=== PATIENT | female | born 1975 | race Caucasian/White ===

== ENCOUNTER 2017-01-21 14:32 | Outpatient (CLI) | payer OTHER ==
--- NOTE | 2017-01-22 17:05 | Mammography Report ---
DIGITAL SCREENING MAMMOGRAM: 01/21/2017 CLINICAL INDICATION: A 41-year-old for baseline. TECHNIQUE: Routine CC and MLO projections were obtained of the breasts as well as bilateral laterall y exaggerated craniocaudal views. FINDINGS: The breasts demonstrate heterogeneously dense fibroglandular parenchyma bilaterally. No s uspicious masses, clustered microcalcifications, or regions of architectural distortion are identifie d. IMPRESSION: NEGATIVE EXAMINATION. RECOMMENDATION: Routine annual screening unless otherwise clinically indicated. BIRADS CATEGORY 1 - NEGATIVE. STANDARD QUALIFYING STATEMENTS 1. This examination was reviewed with the aid of Computer-Aided Detection (CAD). 2. A negative or benign imaging report should not delay biopsy if clinically suspicious findings are present. Consider surgical consultation if warranted. More than 5% of cancers are not identified by i maging. 3. Dense breasts may obscure an underlying neoplasm. JOB #: [id number] EXT JOB #:[id number]
== END 2017-01-21 14:33 | disposition home or self-care (01) ==
LOC: DI.N 14:32
PROVIDERS: ATTEND Physician Assistant Medical
DX: Z12.31 Encounter for screening mammogram for malignant neoplasm of breast (principal)
CPT/HCPCS: 77067

== ENCOUNTER 2017-11-09 08:14 | Outpatient (CLI) | payer BC ==
--- NOTE | 2017-11-09 15:45 | CT Report ---
CT SINUSES WITHOUT CONTRAST: 11/09/2017 CLINICAL INDICATION: Sinusitis. TECHNIQUE: Axial CT images of the paranasal sinuses were obtained without contrast, following which sagittal and coronal reconstructions were performed. COMPARISON: No previous CT is available for comparison. FINDINGS: There is mild mucosal thickening in the maxillary sinuses. The ethmoid air cells, sphenoid sinus, and frontal sinuses are unremarkable. The ostiomeatal units are patent. The nasal septum is midline. No osseous destruction is seen. The visualized orbital contents are unremarkable. IMPRESSION: MILD CHRONIC MAXILLARY SINUS DISEASE. CT DOSE REDUCTION STATEMENT In accordance with CT protocol optimization, one or more of the following dose reduction techniques were utilized for this exam: automated exposure control, adjustment of mA and/or KV based on patient size, or use of iterative reconstructive technique. TD: 11/09/2017 15:44
== END 2017-11-09 08:15 | disposition home or self-care (01) ==
LOC: DI 08:14
PROVIDERS: ATTEND Physician Assistant Medical
DX: J32.0 Chronic maxillary sinusitis (principal)
CPT/HCPCS: 70486

== ENCOUNTER 2018-01-31 14:40 | Outpatient (CLI) | payer BC | END 2018-01-31 14:41 | disposition home or self-care (01) | LOC: LAB.R 14:40 | PROVIDERS: ATTEND Obstetrics & Gynecology | DX: Z11.3 Encounter for screening for infections with a predominantly sexual mode of transmission (principal) | CPT/HCPCS: 87491; 87591 ==

== ENCOUNTER 2018-01-31 15:06 | Outpatient (CLI) | payer BC ==
[2018-01-31 15:33] LABS: BILIRUBIN,URINE NEGATIVE (NEGATIVE); GLUCOSE, URINE (UA) NEGATIVE (NEGATIVE); KETONES,URINE (UA) NEGATIVE (NEGATIVE); LEUKOCYTE ESTERASE, URINE NEGATIVE (NEGATIVE); NITRITE,URINE NEGATIVE (NEGATIVE); OCCULT BLOOD,URINE NEGATIVE (NEGATIVE); PH,URINE 6.5 PH (5.0-7.5); PROTEIN,URINE NEGATIVE (NEGATIVE); UROBILINOGEN,URINE 0.2 (NORMAL) E.U./dL (NORMAL)
[2018-01-31 15:34] LABS: BASOPHILS % (AUTO) 0.4 %; EOSINOPHILS # (AUTO) 0.1 10^3/uL (0.0-0.7); EOSINOPHILS % (AUTO) 0.7 %; HGB - HEMOGLOBIN 11.1 g/dL (12.0-16.0); LYMPHOCYTES # (AUTO) 1.9 10^3/uL (1.5-3.5); LYMPHOCYTES % (AUTO) 22.6 %; MEAN CORPUSCULAR HEMOGLOBIN 30.4 pg (27.0-31.0); MEAN CORPUSCULAR HGB CONC 33.9 g/dL (32.0-36.0); MEAN CORPUSCULAR VOLUME 89.6 fL (81.0-99.0); MEAN PLATELET VOLUME 8.4 fL (7.9-10.8); MONOCYTES # (AUTO) 0.6 10^3/uL (0.0-1.0); NEUTROPHILS # (AUTO) 5.7 10^3/uL (1.5-6.6); NEUTROPHILS % (AUTO) 69.3 %; PLT - PLATELET COUNT 266 10^3/uL (130-450); RED BLOOD COUNT 3.67 10^6/uL (4.20-5.40); RED CELL DISTRIBUTION WIDTH 12.1 % (12.0-15.0); WHITE BLOOD COUNT 8.2 x10^3/uL (4.8-10.8)
[2018-01-31 15:35] LABS: CLARITY,URINE CLEAR (CLEAR)
[2018-01-31 15:38] LABS: BACTERIA,URINE Rare /HPF (None Seen); RBC,URINE None Seen /HPF (0-5); SQUAMOUS EPITHELIAL CELL,UR FEW Squamous (<= Few)
[2018-02-01 17:26] LABS: HIV AG/AB 4TH GEN NON-REACTIVE (NON-REACTIVE)
[2018-02-02 19:10] LABS: HEPATITIS B SURFACE ANTIGEN NON-REACTIVE (NON-REACTIVE); HEPATITIS C ANTIBODY NON-REACTIVE (NON-REACTIVE)
== END 2018-01-31 15:07 | disposition home or self-care (01) ==
LOC: LAB 15:06
PROVIDERS: ATTEND Obstetrics & Gynecology
DX: Z36.9 Encounter for antenatal screening, unspecified (principal); Z11.3 Encounter for screening for infections with a predominantly sexual mode of transmission
CPT/HCPCS: 36415; 81001; 81599; 85025; 86592; 86762; 86803; 86850; 86900; 86901; 87340; 87389; 87491; 87591

== ENCOUNTER 2018-01-31 15:10 | Outpatient (CLI) | payer BC ==
[2018-02-01 16:17] LABS: MUDS CUTOFF CONCENTRATIONS CUTOFF CONC BELOW:
[2018-02-01 16:39] LABS: AMPHETAMINE SCREEN,URINE NEGATIVE (NEGATIVE); BENZODIAZEPINES SCREEN, URINE NEGATIVE (NEGATIVE); COCAINE SCREEN URINE NEGATIVE (NEGATIVE); METHADONE SCREEN, URINE NEGATIVE (NEGATIVE); METHAMPHETAMINES SCREEN, URINE NEGATIVE (NEGATIVE); OPIATE SCREEN, URINE NEGATIVE (NEGATIVE); OXYCODONE SCREEN, URINE NEGATIVE (NEGATIVE); PROPOXYPHENE SCREEN, URINE NEGATIVE (NEGATIVE); TRICYCLIC ANTIDEPRESSANT,URINE NEGATIVE (NEGATIVE)
== END 2018-01-31 23:59 ==
LOC: LAB.R 15:10
PROVIDERS: ATTEND Obstetrics & Gynecology
DX: Z36.9 Encounter for antenatal screening, unspecified (principal)
CPT/HCPCS: 80306

== ENCOUNTER 2018-04-22 07:31 | Outpatient (CLI) | payer BC ==
--- NOTE | 2018-04-22 10:04 | Ultrasound Report ---
Procedure Date: 04/22/2018 Accession Number: [id number] / [id number] Procedure: US - OB Detailed Eval CPT Code: FULL RESULT: EXAM: OB Detailed Eval DATE: 04/22/2018 8:51 AM CLINICAL HISTORY: ENCTR FOR SCREENING TECHNIQUE: Real-time scanning was performed with fuels sales representative static images obtained. COMPARISON: None LAST MENSTRUAL PERIOD: 11/23/2017 Clinical Age: 21 weeks 3 days US Age: 22 weeks 1 days EFW Hadlock: 491 grams EFW % Hadlock: 85% Heart Rate: 132 bpm EDC: 08/30/2018 US EDC: 08/25/2018 BPD Hadlock: 22 weeks 1 days; Mean mm 53 HC Hadlock: 22 weeks 4 days; Mean mm 177 AC Hadlock: 22 weeks 4 days; Mean mm 177 FL Hadlock: 22 weeks 1 days; Mean mm 38 Presentation: Tranverse Placental Location: Posterior Cervical Length: 4.4 cm Amniotic Fluid: CECILIA Subjectively normal cm FINDINGS: There is a single live intrauterine gestation in transverse presentation with a heart rate of 132 bpm with a posterior placenta without evidence of previa supplied by essentially originating three-vessel cord. Due to motion views of the right and left ventricular outflow tracts were somewhat limited. The following anatomic structures were visualized and appear normal: The intracranial contents, including the ventricles and posterior fossa; the lips and orbits; the spine; the heart, including 4 chamber view (note limited visualization of both outflow tracts) and diaphragm; the abdominal contents, including the stomach, the bilateral kidneys, and urinary bladder, as well as a normal 3-vessel cord insertion; 4 limbs. IMPRESSION: Single live intrauterine gestation with a sonographic age of 22 weeks and 1 day. Somewhat limited visualization of the right and left ventricular outflow tracts with no abnormality detected.
== END 2018-04-22 07:32 | disposition home or self-care (01) ==
LOC: DI 07:31
PROVIDERS: ATTEND Obstetrics & Gynecology
DX: Z36.9 Encounter for antenatal screening, unspecified (principal)
CPT/HCPCS: 76811

== ENCOUNTER 2018-05-13 12:11 | Outpatient (CLI) | payer BC ==
[2018-05-13 13:26] LABS: MEAN CORPUSCULAR HEMOGLOBIN 30.3 pg (27.0-31.0); MEAN CORPUSCULAR HGB CONC 33.7 g/dL (32.0-36.0); MEAN PLATELET VOLUME 8.6 fL (7.9-10.8); RED BLOOD COUNT 3.63 10^6/uL (4.20-5.40); RED CELL DISTRIBUTION WIDTH 13.2 % (12.0-15.0); WHITE BLOOD COUNT 11.2 x10^3/uL (4.8-10.8)
== END 2018-05-13 12:12 | disposition home or self-care (01) ==
LOC: LAB 12:11
PROVIDERS: ATTEND Obstetrics & Gynecology
DX: Z34.90 Encounter for supervision of normal pregnancy, unspecified, unspecified trimester (principal)
CPT/HCPCS: 36415; 82950; 85027; 86850

== ENCOUNTER 2018-05-17 09:38 | Outpatient (CLI) | payer BC ==
--- NOTE | 2018-05-17 12:17 | Ultrasound Report ---
Reason: ENCOUNTER FOR OTHER SCREENING FOLLOW UP Procedure Date: 05/17/2018 Accession Number: [id number] / [id number] Procedure: US - OB F/U or Repeat CPT Code: FULL RESULT: EXAM: LIMITED OBSTETRICAL ULTRASOUND EXAM DATE: 05/17/2018 10:35 AM. CLINICAL HISTORY: ENCOUNTER FOR OTHER SCREENING FOLLOW UP for evaluation of cardiac outflow tracts. COMPARISON: 04/22/2018. TECHNIQUE: Real-time sonographic evaluation of the fetus performed by the fire alarm mechanic. Multiple personal financial representative static images were saved for review. DATING: Established EGA 25 weeks 0 days with ETHAN 08/30/2018. GENERAL EVALUATION Mock . Cardiac activity: 122 bpm. movement: Present. Presentation: Breech. Placenta: Posterior position. Amniotic fluid: Normal. CECILIA 21.3 cm. MVP 6.1 cm. ANATOMY cardiac outflow tracts well seen today and no abnormality is identified. MATERNAL STRUCTURES Cervix long and closed 5.2 cm. IMPRESSION: 1. Mock intrauterine with gestational age 25 weeks 0 days based on established ETHAN. 2. outflow tracts are well seen and no abnormality is identified. RADIA
== END 2018-05-17 09:39 | disposition home or self-care (01) ==
LOC: DI 09:38
PROVIDERS: ATTEND Obstetrics & Gynecology
DX: Z36.2 Encounter for other antenatal screening follow-up (principal)
CPT/HCPCS: 76816

== ENCOUNTER 2018-07-18 08:34 | Outpatient (CLI) | payer BC ==
--- NOTE | 2018-07-18 12:26 | Ultrasound Report ---
Reason: ENCTR FOR SCREENING FOR MACROSOMIA Procedure Date: 07/18/2018 Accession Number: [id number] / [id number] Procedure: US - OB F/U or Repeat CPT Code: FULL RESULT: EXAM: COMPLETE OBSTETRICAL ULTRASOUND EXAM DATE: 07/18/2018 10:00 AM. CLINICAL HISTORY: Macrosomia. COMPARISON: OB FOLLOWUP OR REPEAT 05/17/2018 9:57 AM. TECHNIQUE: Real-time sonographic evaluation of the fetus performed by the geographic information systems director. Multiple car sales representative static images were saved for review. DATING: Established EGA 33 weeks 6 days with ETHAN 08/30/2018 based on physician provided established due date. EGA 36 weeks 1 day with ETHAN 08/14/2018 based on the current ultrasound. GENERAL EVALUATION Mock . Cardiac activity: 138 bpm. movement: Visualized. Presentation: Breech. Placenta: Fundal position. No evidence for previa. Amniotic fluid: 19.8 MVP 6.7 cm. BIOMETRY Bi-Parietal Diameter (BPD): 9.0 cm, 36 weeks 3 days Head Circumference (HC): 32.5 cm, 36 weeks 6 days Abdominal Circumference (AC): 33.3 cm, 37 weeks 1 day Femur Length (FL): 6.7 cm, 34 weeks 3 days Estimated Weight: 2940 g, 84th percentile for 33 weeks 6 days. MATERNAL STRUCTURES Uterus: Unremarkable. Cervix: Long and closed. Transabdominal length 5.3 cm. Right ovary/adnexa: Unremarkable. Left ovary/adnexa: Unremarkable. Free fluid: None. IMPRESSION: 1. Mock live intrauterine with gestational age 33 weeks 6 days based on physician provided established due date. 2. Estimated weight is at the upper limits of normal. 3. Breech presentation. RADIA
== END 2018-07-18 08:35 | disposition home or self-care (01) ==
LOC: DI 08:34
PROVIDERS: ATTEND Obstetrics & Gynecology
DX: Z36.88 Encounter for antenatal screening for fetal macrosomia (principal)
CPT/HCPCS: 76816

== ENCOUNTER 2018-08-02 08:00 | Outpatient (CLI) | payer BC | END 2018-08-02 08:01 | disposition home or self-care (01) | LOC: LAB.R 08:00 | PROVIDERS: ATTEND Obstetrics & Gynecology | DX: Z33.1 Pregnant state, incidental (principal) | CPT/HCPCS: 87081 ==

== ENCOUNTER 2018-08-29 15:47 | Inpatient (IN) | payer BC ==
[2018-08-29] MEDS ORDERED: OXYTOCIN/SODIUM CHLORIDE 500 ML IV SCH (16:00)
[2018-08-29] MEDS ORDERED: METHYLERGONOVINE 0.2 MG/ML AMP IM PRN (16:00)
[2018-08-29] MEDS ORDERED: miSOPROStol 200 MCG TABLET PR ONE (16:00)
[2018-08-29] MEDS ORDERED: fentaNYL 100 MCG/2 ML VIAL IVP PRN (16:00)
[2018-08-29] MEDS ORDERED: CARBOPROST TROMETHAMINE 250 MCG/ML AMP IM PRN (16:00)
[2018-08-29] MEDS ORDERED: SODIUM CHLORIDE FLUSH 0.9% 10 ML SYRINGE IVP PRN (16:00)
[2018-08-29] MEDS ORDERED: miSOPROStol 200 MCG TABLET PR PRN (16:00)
[2018-08-29] MEDS ORDERED: ONDANSETRON ODT 4 MG TABLET TL PRN (16:00)
--- NOTE | 2018-08-29 16:12 | HISTORY & PHYSICAL EXAMINATION ---
DATE OF SERVICE: 08/29/2018 Physician: Nitin Brock MD DIAGNOSES 1. A 39-week, 6-day gestation. 2. LGA , 84th percentile. 3. History of prior macrosomic . 4. Advanced maternal age. HISTORY OF PRESENT ILLNESS: Patient is a 43-year-old 3, para 2-0-0-2, woman at 39 weeks and 6 days gestation confirmed by early ultrasound. (LMP 11/23/2017, ETHAN by dates 08/30/2018; ETHAN by 10-week ultrasound 08/27/2018; ETHAN set at 08/30) She notes occasional uterine contractions but does not suspect leakage of fluid. There are no signs or symptoms of preeclampsia. Her last delivery was post-dates induction at 42 weeks that ended up as a 9 pound, 8 ounce fetus with lacerations. She has been closely tracked on this , and last ultrasound documented an LGA fetus at 33 weeks, 6 days, consistent with the 84th percentile. At that time, the cervix was long and full. 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 Her Glucola challenge test is normal at 108. Basic labs: Blood type O+, antibody screen negative; RPR negative; urinalysis negative; rubella immune; hepatitis B surface antigen negative; toxicology screen negative; 20-week ultrasound normal anatomy except ventricular outflow tract not well seen, repeat ultrasound normal cardiac anatomy; 1 hour glucose challenge test 108 normal; HIV negative; GBS negative Strep C found on culture PAST MEDICAL HISTORY: Patient has no major medical concerns. She has no history of chronic diseases such as diabetes or hypertension. PAST SURGICAL HISTORY 1. Umbilical and inguinal hernia repair, 2009. 2. D & C. FAMILY HISTORY: No immediate family members with NC or stroke or DVT. No gynecologic malignancy history. No congenital anomalies or defects. ALLERGIES 1. ERYTHROMYCIN. 2. SULFA. 3. AUGMENTIN. 4. OMNICEF. 5. AMOXICILLIN. 6. TORADOL. MEDICATIONS: Acyclovir 400 mg b.i.d.; vitamins with iron SOCIAL HISTORY: Former smoker, but now abstinent. Drinks 2 cups of coffee a day. Exercises 3 times a week. No alcohol use in . No drug use in . REVIEW OF SYSTEMS CONSTITUTIONAL: Negative. HEENT: Negative. CARDIAC: Negative. LUNGS: Negative. GASTROINTESTINAL: Negative. GENITOURINARY: Reference HPI. MUSCULOSKELETAL: Negative. NEUROLOGIC: Negative. PSYCHIATRIC: Negative. PHYSICAL EXAMINATION GENERAL: Well groomed, pleasant, alert. VITAL SIGNS: BMI 30.32, blood pressure 130/75. HEENT: Supple neck. No thyromegaly. Dentition in good repair. BREASTS: Deferred. LUNGS: Clear to auscultation. CARDIAC: Regular. No murmur. No gallop. ABDOMEN: Nondistended. No organomegaly. No significant tenderness. UTERUS: Normal resting tone, nontender, no contractions; large fetus estimate 9 pounds plus, in a head down oblique (confirmed by ultrasound). EXTERNAL GENITALIA: No apparent lesions. Vagina: No blood or discharge. Cervix: 1 cm, 30% effaced, soft, -3 station. Electronic heart tracing pending. EXTREMITIES: Nonedematous. No notable lesions. Normal range of motion. NEUROLOGIC: Grossly intact. Patellar reflexes 2+ and equal. No clonus. SKIN: No lesions noted. ADMIT LABS: Pending. ASSESSMENT: Induction This is a 40-week gestation that previous pregnancies have been complicated by macrosomia and traumatic delivery. Patient has a LGA fetus in a head down oblique position. The head has entered the pelvis and the bony pelvis Has proven adequate for 9 pound plus fetus. Currently the upward trend of growth may exceed maternal capacity to deliver. I intend to induce labor beginning with cervical ripening and nuchal misoprostol. We discussed the risks and benefits of induction. Standardized induction consent form was signed. Group C Streptococcus 2.9% of women are colonized by Streptococcus G or C. Vaginal colonization is associated with increased risk of endometritis. More research is needed to clarify if antibiotic prophylaxis is reasonable for this group, but antibiotic treatment should start without delay for these women if signs of infection appear during labor or in the period. Currently prophylactic antibiotics are not required. PLAN: Cytotec induction. TD: 08/29/2018 15:15 [email or web address]
[2018-08-29 16:33] LABS: BASOPHILS # (AUTO) 0.1 10^3/uL (0.0-0.1); BASOPHILS % (AUTO) 0.5 %; EOSINOPHILS # (AUTO) 0.1 10^3/uL (0.0-0.7); HGB - HEMOGLOBIN 10.9 g/dL (12.0-16.0); LYMPHOCYTES # (AUTO) 1.7 10^3/uL (1.5-3.5); LYMPHOCYTES % (AUTO) 16.1 %; MEAN CORPUSCULAR HEMOGLOBIN 29.1 pg (27.0-31.0); MEAN CORPUSCULAR HGB CONC 33.2 g/dL (32.0-36.0); MEAN CORPUSCULAR VOLUME 87.6 fL (81.0-99.0); MONOCYTES # (AUTO) 0.8 10^3/uL (0.0-1.0); MONOCYTES % (AUTO) 7.5 %; NEUTROPHILS # (AUTO) 8.1 10^3/uL (1.5-6.6); NEUTROPHILS % (AUTO) 74.9 %; PLT - PLATELET COUNT 260 10^3/uL (130-450); RED BLOOD COUNT 3.74 10^6/uL (4.20-5.40); RED CELL DISTRIBUTION WIDTH 14.5 % (12.0-15.0); WHITE BLOOD COUNT 10.9 x10^3/uL (4.8-10.8)
[2018-08-29] MEDS: miSOPROStol 100 MCG TABLET BC SCH ×2 (16:46→21:30)
[2018-08-29] MEDS ORDERED: SODIUM CHLORIDE FLUSH 0.9% 10 ML SYRINGE IVP SCH (17:00)
[2018-08-29] MEDS ORDERED: miSOPROStol 200 MCG TABLET ONE (17:15)
[2018-08-29] MEDS ORDERED: OXYTOCIN/SODIUM CHLORIDE 0 ML IV ONE (17:16)
--- NOTE | 2018-08-29 19:31 | PROVIDER PROGRESS NOTE ---
Labor Progress Note - Uterine Monitoring Uterine Monitoring Mode: positive: External toco Contraction Frequency (min/apart): irreg Contraction Intensity: positive: Mild Uterine Resting Tone: positive: Soft - Monitoring Monitor Mode: positive: External ultrasound Heart Rate Baseline: 135 Heart Rate Variability: positive: Moderate (6-25 bmp) Accelerations: positive: Present, 15x15 Decelerations: positive: None Strip Review: positive: Category I - Labor Progress Note Labor Progress Note/Additional Text: Patient has received her first dose of Cytotec but is yet to start regular contractions. Second dose will be around 2044. We will continue dosing throughout the night unless patient requests rest time. If she desires to sleep overnight we will give Ambien 10 mg and hold Cytotec dosing until 6 AM.
[2018-08-29] MEDS ORDERED: TERBUTALINE 1 MG/ML VIAL SUBQ ONE ×2 (22:43→23:07)
[2018-08-29] MEDS: LACTATED RINGERS 1,000 ML IV SCH (23:00)
--- NOTE | 2018-08-29 23:28 | PROVIDER PROGRESS NOTE ---
Labor Progress Note - Uterine Monitoring Uterine Monitoring Mode: positive: External toco Contraction Frequency (min/apart): Every 4.5-2 minutes; Sustained contraction for 6 minutes at 2230 Contraction Intensity: positive: Mild to moderate (Some of the contractions are beyond moderate and range up to strong.) Uterine Resting Tone: positive: Soft (Currently the resting tone is soft but increased compared to baseline; immediately after the 20-30 contraction nursing reports increased resting tone) - Monitoring Monitor Mode: positive: External ultrasound Heart Rate Baseline: 145 bpm Heart Rate Variability: positive: Moderate (6-25 bmp) (Currently moderate but previously minimal) Accelerations: positive: Present, 15x15 Decelerations: positive: Variable (Variable decelerations with major of 120; Some as low as 90 but with prompt recovery; at 2303 D cell to 90 lasting 90 seconds; single dose terbutaline 0.25 mg subcu given shortly thereafter) Strip Review: positive: Category II - Vaginal Exam Dilation (in cm): 2 (Based on baseline exam, could not palpate cervical os currently) Effacement (%): 30% (Based on baseline exam, could not palpate cervical os currently) Station: Ballotable (-4 station) Cervical Position: Midposition - Labor Progress Note Labor Progress Note/Additional Text: After second dose of Cervidil patient's tempo and intensity of contractions increased; however, so did decelerations and resting tone. Patient is in a oblique head down position and given time and contractions the line should convert to vertex again. Position change probably dislodged head. In utero resuscitation was done with oxygen fluid bolus and single dose terbutaline 0.25 mg subcu. Tone and contraction frequency has decreased and EFM tracing returning to category 1. Will hold midnight dose of Cervidil.
[2018-08-29] MEDS ORDERED: ZOLPIDEM 5 MG TABLET PO ONE (23:59)
[2018-08-30] MEDS ORDERED: TERBUTALINE 1 MG/ML VIAL SUBQ ONE (01:01)
[2018-08-30] MEDS: LACTATED RINGERS 1,000 ML IV SCH ×4 (01:26→20:05)
--- NOTE | 2018-08-30 07:27 | PROVIDER PROGRESS NOTE ---
Labor Progress Note - Uterine Monitoring Uterine Monitoring Mode: positive: External toco Contraction Frequency (min/apart): Every 3-6 minutes Contraction Intensity: positive: Mild Uterine Resting Tone: positive: Soft - Monitoring Monitor Mode: positive: External ultrasound Heart Rate Baseline: 140 Heart Rate Variability: positive: Moderate (6-25 bmp) Accelerations: positive: Present, 15x15 Decelerations: positive: None Strip Review: positive: Category I - Vaginal Exam Dilation (in cm): Cannot clearly field to the high station Effacement (%): Cannot clearly feel to the high station Station: Ballotable - Labor Progress Note Labor Progress Note/Additional Text: Patient rested overnight with the aid of Ambien. Contractions have diminished in frequency and intensity. Prior concerning's variable decelerations have ceased. Head was dislodged out of the pelvis with repositioning last night during resuscitation. It is not returned and ultrasound ordered to investigate EFW. Possibly the lie is shifted back to a transverse.
[2018-08-30] MEDS ORDERED: CITRIC ACID/SODIUM CITRATE 15 ML UDC PO ONE (08:23)
--- NOTE | 2018-08-30 08:36 | ANESTHESIA ---
Pre-Anesthesia VS, & Labs - Diagnosis distress - Procedure Emergency C section Vital Signs: Temp Pulse Resp BP Pulse Ox 36.9 C 76 18 113/68 99 08/29/18 18:00 08/29/18 18:00 08/29/18 18:00 08/29/18 18:00 08/29/18 18:00 Height 5 ft 7 in Weight (kg) 91.172 kg - NPO >8 hours - Is Patient ?: Yes - Lab Results Current Lab Results: Laboratory Tests 08/29/18 14:24: WBC 10.9 H, RBC 3.74 L, Hgb 10.9 L, Hct 32.8 L, MCV 87.6, MCH 29.1, MCHC 33.2, RDW 14.5, Plt Count 260, MPV 10.0, Neut # (Auto) 8.1 H, Lymph # (Auto) 1.7, Powell # (Auto) 0.8, Eos # (Auto) 0.1, Baso # (Auto) 0.1, Absolute Nucleated RBC 0.00, Nucleated RBC % 0.0 Fish Bones: 08/29/18 14:24 Home Medications and Allergies Home Medications: Ambulatory Orders Acyclovir [Zovirax] 400 mg PO BID 08/29/18 Active Medications Fentanyl (Fentanyl) 50 mcg IVP Q1H PRN PRN Reason: PAIN Lactated Ringer's (Lr) 1,000 mls @ 100 mls/hr IV .Q10H [facility] Last Admin: 08/30/18 08:08 Dose: 100 mls/hr Oxytocin/Sodium Chloride (Pitocin/Sodium Chloride) 500 mls @ 1 mls/hr IV TITR ZOILA; Protocol Misoprostol (Cytotec) 50 mcg BC Q4HR [facility] Last Admin: 08/29/18 21:30 Dose: 50 mcg Ondansetron HCl (Zofran Inj) 4 mg IVP Q4HR PRN PRN Reason: Nausea / Vomiting Ondansetron HCl (Zofran Odt) 4 mg TL Q4HR PRN PRN Reason: Nausea / Vomiting Sodium Chloride (Normal Saline Flush 0.9%) 10 ml IVP 0100,0900,1700 ZOILA Sodium Chloride (Normal Saline Flush 0.9%) 10 ml IVP PRN PRN PRN Reason: NEEDED PER PROVIDER ORDERS Last Admin: 08/29/18 16:46 Dose: 10 ml Fluticasone [Flonase] 2 sprays DEXTER DAILY 07/13/13 Acyclovir [Zovirax] 400 mg PO BID 08/29/18 Allergies/Adverse Reactions: Allergies Allergy/AdvReac Type Severity Reaction Status Date / Time amoxicillin trihydrate * Allergy Intermediate Rash Verified 07/14/13 06:47 [From Augmentin] Cephalosporins Allergy Intermediate Rash Verified 07/14/13 06:47 erythromycin base Allergy Intermediate Rash Verified 07/14/13 06:47 [Erythromycin Base] potassium clavulanate * Allergy Intermediate Rash Verified 07/14/13 06:47 [From Augmentin] Sulfa (Sulfonamide Allergy Intermediate Rash Verified 07/14/13 06:47 Antibiotics) Anes History & Medical History - Anesthetic History Anesthesia Complications: reports: No previous complications Family history of Anesthesia Complications: Denies Family history of Malignant Hyperthermia: Denies - Medical History Cardiovascular: reports: None Pulmonary: reports: None Gastrointestinal: reports: None Urinary: reports: None Neuro: reports: None Musculoskeletal: reports: None Endocrine/Autoimmune: reports: None Blood Disorders: reports: None Skin: reports: None Smoking Status: Former smoker Psychosocial: reports: No issues indicated Exam General: Alert, Oriented x3 Dental: WNL Mouth Opening: Greater than 4 Fingerbreadths Neck Mobility: Normal Mallampati classification: II Thyromental Distance: greater than 6 cm Respiratory: Lungs clear Cardiovascular: Regular rate Mental/Cognitive Status: Alert/Oriented X3, Normal for patient Cognitive Status: Within normal limits Plan Anesthesia Type: Spinal Consent for Procedure(s) Verified and Reviewed: Yes Code Status: Attempt Resuscitation ASA classification: 2-Mild systemic disease Is this case an emergency?: Yes
[2018-08-30] MEDS ORDERED: LACTATED RINGERS 1,000 ML IV ONE (08:46)
[2018-08-30] MEDS ORDERED: VANCOMYCIN INJ 2 GM in SODIUM CHLORIDE 0.9% 500 ML IV SCH (09:00)
[2018-08-30] MEDS ORDERED: VANCOMYCIN 1 GM VIAL ONE (09:11)
[2018-08-30] MEDS ORDERED: MORPHINE PF 5 MG/10 ML AMP EP ONE (09:25)
[2018-08-30] MEDS ORDERED: VANCOMYCIN 1 GM VIAL IV ONE (09:25)
[2018-08-30] MEDS ORDERED: ePHEDrine 50 MG/ML VIAL IVP ONE (09:25)
[2018-08-30] MEDS ORDERED: ONDANSETRON 4 MG/2 ML VIAL IVP ONE ×2 (09:25→13:00)
[2018-08-30] MEDS ORDERED: ACETAMINOPHEN 1,000 MG/100 ML 100 ML IV ONE (09:25)
--- NOTE | 2018-08-30 09:33 | Ultrasound Report ---
Reason: malpresentation and Macrosomic Procedure Date: 08/30/2018 Accession Number: [id number] / [id number] Procedure: US - OB F/U or Repeat CPT Code: FULL RESULT: EXAM: FOLLOW-UP OBSTETRICAL ULTRASOUND EXAM DATE: 08/30/2018 08:33 AM. CLINICAL HISTORY: Malpresentation and Macrosomic. Cervical length. COMPARISON: 07/18/2018. TECHNIQUE: Real-time transabdominal scanning, with image documentation. Transvaginal scan performed to better assess the cervix per request. DATING: Established EGA 40-0/7 weeks with ETHAN 08/30/2018. EGA 41-3/7 weeks with ETHAN 08/20/2018 based on the current ultrasound. GENERAL EVALUATION Mock . Cardiac activity: 133 bpm. movement: Visualized. Presentation: Oblique transverse breech, spine up, head to maternal left. Placenta: Anterior position. Amniotic fluid: Normal. CECILIA 13.8 cm. MVP 4.4 cm. BIOMETRY Bi-Parietal Diameter (BPD): 10.2 cm, 41-6/7 weeks. Head Circumference (HC): 33.3 cm, out of range. Abdominal Circumference (AC): 41 cm, out of range. Femur Length (FL): 8 cm, 41-1/7 weeks. Estimated Weight: 5162 gm, 99th percentile for 40-0/7 weeks. ANATOMY Not specifically evaluated. MATERNAL STRUCTURES Cervix: Closed cervical length 1.9 cm TV. IMPRESSION: 1. Live mock in oblique transverse breech presentation (spine up, head to maternal left) with current composite sonographic age of 41-3/7 weeks, compared to expected gestational age of 40-0/7 weeks based on the stated ETHAN.. 2. Macrosomia, EFW 99th percentile. 3. Normal fluid, CECILIA 13.8. 4. Anterior placenta. 5. Shortened closed cervical length 1.9 cm. RADIA
[2018-08-30] MEDS ORDERED: SODIUM CHLORIDE FLUSH 0.9% 10 ML SYRINGE IVP PRN (10:07)
[2018-08-30] MEDS ORDERED: diphenhydrAMINE 25 MG CAPSULE PO PRN (10:07)
[2018-08-30] MEDS ORDERED: WITCH HAZEL/GLYCERIN 1 EACH MED..PAD TOP PRN (10:07)
[2018-08-30] MEDS ORDERED: HYDROmorphone 2 MG/ML VIAL IVP PRN (10:14)
--- NOTE | 2018-08-30 10:17 | OPERATIVE REPORT ---
Operative Report - General Admit Date: 08/30/18 Planned Procedure: Primary section Pre-Op Diagnosis: Transverse Lie, backup; macrosomia, 5140 g on ultrasound; AMA Procedure Performed: Primary lower segment transverse section, living macrosomic female infant Post Op Diagnosis: Same as above, Tight nuchal cord - Procedure Note Primary Surgeon: Nitin Brock MD, FACOG, FICS Secondary Surgeon: Nitin Olguin MD, FACOG Pediatrics: Dr. Magdy Pierre MD Anesthesia Provider: Noe Bueno, certified nurse senior erp consultant Anesthesia Technique: Spinal Pathology: Cord gases and cord blood sent IV Fluids (mL): 900 Estimated Blood Loss (mL): 400 Urine Output (mL): 120 (Clear ) Drain/Tube Type: Other (Duncan catheter to gravity) Complications: None - Other Other Information/Narrative: Immediately prior to surgery ultrasound confirmed a back up with head left transverse lie. Segments of cord were visualized in the pelvis around the small parts and neck and possibly bandolier over the back. Physical exam confirmed the head was out of the the pelvis. Ultrasound estimated weight was 5140 g. External monitor strip was stable with baseline in the 140s, moderate variability and no worrisome decelerations. Given the situation, expectant management was unexceptable because of the pooling of cord, macrosomia & the back up presentation; therefore, C Section was recommended. We discussed section, outlining the mechanics, risks,and benefits. After detailed discussion patient and her partner decided to opt for section at this time. She has multiple antibiotic allergies that result in rash and respiratory distress; therefore, vancomycin was chosen. Patient was given Bicitra, placed n.p.o., and 2 units of packed red blood cells were placed on hold. I reviewed her situation with anesthesia and a spinal anesthetic was chosen. Patient was brought to the operating room and placed on the table in the sitting position. Spinal anesthetic was uneventfully installed and patient was moved to the supine. She was prepped and draped in the customary sterile fashion. The heart tones were confirmed stable at roughly 150. The abdomen was palpated and transverse was confirmed again. Additionally there was bilateral inguinal mesh hernia repairs and a sub-umbilical mesh repair repair were identified as well. A midline incision was chosen to avoid this mesh. Timeout briefing was done per protocol. Patient was receiving a loading dose of vancomycin 2 g. Incision was begun at 0916 hours. Midline incision was executed approximately 2 cm above the symphysis and 3 cm below the umbilicus to prevent mesh incursion. The abdominal wall was une ventfully opened in layers. Bladder blade was inserted. Anatomic landmarks were established. Adjunct Nursing Faculty palpated the back and found it to be still back up transverse. The lie was mobile and with pressure on the head and back converted to more of a vertex/oblique. With the head down a curvilinear hysterotomy was executed with scalpel. Upon amniotic cavity entry there was clear fluid. As expected there was cord in the lower segment and in particular a tight nuchal cord. Adjunct Nursing Faculty secured the head with his left hand and moved it into the hysterotomy wound. The cord was then reduced. A Kiwi vacuum extractor was placed on the flexion point and pumped to the green zone. With gentle traction and pressure from the assistant kitchen manager at the fundus, the head was atraumatically delivered. Shoulders were delivered in a tight fit as was the rest of the body. Cord was doubly clamped and transected. Cord blood and cord gas sample sent. was handed to Dr. Beatty who was in attendance. Uterus was exteriorized and examined. No myometrial masses, malformations or septa were found. Uterus was closed in 2 layers with a running stitch of 0 Vicryl, first interlocked and second imbricating in a cardinal fashion. Closure was hemostatically secure. Bladder flap peritoneum was then closed with 3-0 Vicryl. The abdominal cavity was doubly lavaged with warm normal saline. All operative sites were inspected and found to be secure. Uterus responded well to Pitocin and was firm. Uterus was placed back into the abdominal cavity and closure was commenced. The abdominal peritoneum was closed with a running stitch of 2-0 Vicryl. Fascia was closed with a running stitch of 0 Vicryl. Subcutaneous tissue was closed with multiple interrupted stitches of 2-0 Vicryl. Skin was closed with subcuticular stitch of 4-0 Monocryl and a Wound VAC was placed. All sponge needle and instrument counts were confirmed as correct. Patient was already alert and happily received infant "Rodriguez." She and went to the recovery room in stable condition. FINDINGS 1. At 0918 hours a living female was born weighing 4216 grams (9 pounds 5 ounces). Delivery was from a transverse backup position converted to vertex by internal version. Delivery of the head was facilitated with Kiwi vacuum. Apgars were 6/8. Arterial blood gases: Ph= 7.192, BE= -4.3 venous blood glasses: PH = 7.312, BE = -0.8. The delivery was atraumatic. There were no obvious congenital anomalies. Reference Dr. Fernando's notes 2. Placenta was delivered intact with three-vessel cord. There was cord entanglement with a tight nuchal cord which was reduced. Placenta grade 3 3. Uterus is inspected and there were no malformations septa or fibroids to explain persistent transverse. Tubes appeared to be open and fluffy on both sides. Ovaries had cystic activity and decidual change without any suspicious gross findings.
[2018-08-30] MEDS: ONDANSETRON 4 MG/2 ML VIAL IVP PRN ×2 (11:29→15:53)
[2018-08-30] MEDS ORDERED: PROMETHAZINE 25 MG SUPP PR ONE (12:45)
[2018-08-30] MEDS: ACETAMINOPHEN 500 MG TABLET PO SCH ×2 (13:51→18:03)
[2018-08-30] MEDS: DOCUSATE SODIUM 100 MG CAPSULE PO SCH (13:51)
[2018-08-30] MEDS: OXYTOCIN/SODIUM CHLORIDE 500 ML IV SCH (13:51)
[2018-08-30] MEDS: SIMETHICONE CHEW 80 MG TABLET PO SCH (13:52)
[2018-08-30 15:50] LABS: BASOPHILS # (AUTO) 0.1 10^3/uL (0.0-0.1); BASOPHILS % (AUTO) 0.3 %; EOSINOPHILS # (AUTO) 0.1 10^3/uL (0.0-0.7); EOSINOPHILS % (AUTO) 0.4 %; HGB - HEMOGLOBIN 9.9 g/dL (12.0-16.0); LYMPHOCYTES % (AUTO) 6.8 %; MEAN CORPUSCULAR HEMOGLOBIN 29.1 pg (27.0-31.0); MEAN CORPUSCULAR HGB CONC 32.8 g/dL (32.0-36.0); MEAN CORPUSCULAR VOLUME 88.6 fL (81.0-99.0); MEAN PLATELET VOLUME 9.9 fL (7.9-10.8); MONOCYTES # (AUTO) 1.1 10^3/uL (0.0-1.0); MONOCYTES % (AUTO) 7.3 %; NEUTROPHILS # (AUTO) 12.6 10^3/uL (1.5-6.6); NEUTROPHILS % (AUTO) 85.2 %; PLT - PLATELET COUNT 226 10^3/uL (130-450); RED BLOOD COUNT 3.42 10^6/uL (4.20-5.40); RED CELL DISTRIBUTION WIDTH 14.6 % (12.0-15.0); WHITE BLOOD COUNT 14.8 x10^3/uL (4.8-10.8)
[2018-08-30 15:57] LABS: ALBUMIN 2.5 g/dL (3.2-5.5); ALBUMIN/GLOBULIN RATIO 0.8 (1.0-2.2); BILIRUBIN,TOTAL 0.4 mg/dL (0.2-1.0); CALCIUM 8.3 mg/dL (8.5-10.3); CREATININE 0.4 mg/dL (0.4-1.0); TOTAL PROTEIN 5.5 g/dL (6.7-8.2)
[2018-08-30] MEDS: SODIUM CHLORIDE FLUSH 0.9% 10 ML SYRINGE IVP SCH (18:03)
[2018-08-30] MEDS ORDERED: SCOPOLAMINE PATCH TOP SCH (20:00)
[2018-08-31] MEDS: LACTATED RINGERS 1,000 ML IV SCH (01:45)
[2018-08-31] MEDS: HYDROmorphone 2 MG/ML VIAL IVP PRN ×2 (01:48→05:47)
[2018-08-31] MEDS: DOCUSATE SODIUM 100 MG CAPSULE PO SCH ×3 (02:28→20:45)
[2018-08-31] MEDS: SIMETHICONE CHEW 80 MG TABLET PO SCH ×5 (02:28→17:29)
[2018-08-31] MEDS: SODIUM CHLORIDE FLUSH 0.9% 10 ML SYRINGE IVP SCH ×2 (06:08→08:13)
[2018-08-31] MEDS: ACETAMINOPHEN 500 MG TABLET PO SCH ×3 (06:08→17:29)
[2018-08-31 06:19] LABS: BASOPHILS % (AUTO) 0.2 %; EOSINOPHILS # (AUTO) 0.1 10^3/uL (0.0-0.7); EOSINOPHILS % (AUTO) 0.4 %; HGB - HEMOGLOBIN 8.9 g/dL (12.0-16.0); LYMPHOCYTES # (AUTO) 1.3 10^3/uL (1.5-3.5); LYMPHOCYTES % (AUTO) 8.8 %; MEAN CORPUSCULAR HEMOGLOBIN 29.5 pg (27.0-31.0); MEAN CORPUSCULAR HGB CONC 33.8 g/dL (32.0-36.0); MEAN CORPUSCULAR VOLUME 87.3 fL (81.0-99.0); MEAN PLATELET VOLUME 9.3 fL (7.9-10.8); MONOCYTES # (AUTO) 0.9 10^3/uL (0.0-1.0); MONOCYTES % (AUTO) 6.4 %; NEUTROPHILS # (AUTO) 12.2 10^3/uL (1.5-6.6); NEUTROPHILS % (AUTO) 84.2 %; PLT - PLATELET COUNT 213 10^3/uL (130-450); RED BLOOD COUNT 3.03 10^6/uL (4.20-5.40); RED CELL DISTRIBUTION WIDTH 14.6 % (12.0-15.0); WHITE BLOOD COUNT 14.4 x10^3/uL (4.8-10.8)
[2018-08-31] MEDS: oxyCODONE 5 MG TABLET PO PRN ×5 (08:11→23:03)
[2018-08-31] MEDS: IBUPROFEN 600 MG TABLET PO SCH ×3 (09:10→20:45)
--- NOTE | 2018-08-31 09:30 | PROVIDER PROGRESS NOTE ---
Subjective - General Admit Date: 08/30/18 Procedure Date: 08/30/18 Post Op Days: 1 Procedure Performed: Primary lower segment transverse section - Review of Systems Wound/Incisions: positive: Other (Wound VAC in place and functional) General: positive: No symptoms HEENT: positive: No symptoms Pulmonary: positive: No symptoms Cardiovascular: positive: No symptoms Gastrointestinal: positive: No symptoms, Flatus Genitourinary: positive: Other (Mild non-fall rubra reported) Musculoskeletal: positive: No symptoms Skin: positive: No symptoms Psychiatric: positive: No symptoms Objective - Patient Data Vital Signs: Vital Signs x48h Temp Pulse Resp BP Pulse Ox 08/31/18 04:12 99.5 F 97 18 122/62 96 Weight: Weight 08/29/18 08/30/18 08/31/18 23:59 23:59 23:59 Weight (kg) 91.172 kg Intake & Output: Intake and Output Totals x24h 08/29/18 08/30/18 08/31/18 23:59 23:59 23:59 Intake Total 845.581 0326.416 2806.667 Output Total 2065 1200 Balance 308.333 865.736 7327.667 - Lab Results Lab Results: 08/31/18 06:05 08/30/18 15:40 Other Lab Results: Lab Results x24hrs 08/31/18 08/30/18 08/30/18 Range/Units 06:05 15:40 15:40 WBC 14.4 H 14.8 H (4.8-10.8) x10^3/uL RBC 3.03 L 3.42 L (4.20-5.40) 10^6/uL Hgb 8.9 L 9.9 L (12.0-16.0) g/dL Hct 26.4 L 30.3 L (37.0-47.0) % MCV 87.3 88.6 (81.0-99.0) fL MCH 29.5 29.1 (27.0-31.0) pg MCHC 33.8 32.8 (32.0-36.0) g/dL RDW 14.6 14.6 (12.0-15.0) % Plt Count 213 226 (130-450) 10^3/uL MPV 9.3 9.9 (7.9-10.8) fL Neut # (Auto) 12.2 H 12.6 H (1.5-6.6) 10^3/uL Lymph # (Auto) 1.3 L 1.0 L (1.5-3.5) 10^3/uL Schuyler # (Auto) 0.9 1.1 H (0.0-1.0) 10^3/uL Eos # (Auto) 0.1 0.1 (0.0-0.7) 10^3/uL Baso # (Auto) 0.0 0.1 (0.0-0.1) 10^3/uL Absolute Nucleated RBC 0.00 0.01 x10^3/uL Nucleated RBC % 0.0 0.0 /100WBC Sodium 135 (135-145) mmol/L Potassium 3.9 (3.5-5.0) mmol/L Chloride 103 (101-111) mmol/L Carbon Dioxide 23 (21-32) mmol/L Anion Gap 9.0 (6-13) BUN 7 (6-20) mg/dL Creatinine 0.4 (0.4-1.0) mg/dL Estimated GFR (MDRD) 174 (>89) Glucose 86 (70-100) mg/dL Calcium 8.3 L (8.5-10.3) mg/dL Total Bilirubin 0.4 (0.2-1.0) mg/dL AST 21 (10-42) IU/L ALT 10 (10-60) IU/L Alkaline Phosphatase 103 (42-121) IU/L Total Protein 5.5 L (6.7-8.2) g/dL Albumin 2.5 L (3.2-5.5) g/dL Globulin 3.0 (2.1-4.2) g/dL Albumin/Globulin Ratio 0.8 L (1.0-2.2) Blood Type Antibody Screen Crossmatch IS Only 08/30/18 Range/Units 08:35 WBC (4.8-10.8) x10^3/uL RBC (4.20-5.40) 10^6/uL Hgb (12.0-16.0) g/dL Hct (37.0-47.0) % MCV (81.0-99.0) fL MCH (27.0-31.0) pg MCHC (32.0-36.0) g/dL RDW (12.0-15.0) % Plt Count (130-450) 10^3/uL MPV (7.9-10.8) fL Neut # (Auto) (1.5-6.6) 10^3/uL Lymph # (Auto) (1.5-3.5) 10^3/uL Schuyler # (Auto) (0.0-1.0) 10^3/uL Eos # (Auto) (0.0-0.7) 10^3/uL Baso # (Auto) (0.0-0.1) 10^3/uL Absolute Nucleated RBC x10^3/uL Nucleated RBC % /100WBC Sodium (135-145) mmol/L Potassium (3.5-5.0) mmol/L Chloride (101-111) mmol/L Carbon Dioxide (21-32) mmol/L Anion Gap (6-13) BUN (6-20) mg/dL Creatinine (0.4-1.0) mg/dL Estimated GFR (MDRD) (>89) Glucose (70-100) mg/dL Calcium (8.5-10.3) mg/dL Total Bilirubin (0.2-1.0) mg/dL AST (10-42) IU/L ALT (10-60) IU/L Alkaline Phosphatase (42-121) IU/L Total Protein (6.7-8.2) g/dL Albumin (3.2-5.5) g/dL Globulin (2.1-4.2) g/dL Albumin/Globulin Ratio (1.0-2.2) Blood Type O POSITIVE Antibody Screen NEGATIVE Crossmatch IS Only See Detail - Current Medications Current Medications: Current Medications Generic Name Dose Route Start Last Admin Trade Name Freq PRN Reason Stop Dose Admin Acetaminophen 1,000 mg 08/30/18 11:00 08/31/18 08:12 Tylenol PO 1,000 mg Q8H ZOILA Administration Docusate Sodium 100 mg 08/30/18 11:00 08/31/18 08:12 Colace 100mg Capsule PO 100 mg BID ZOILA Administration Hydromorphone HCl 2 mg 08/30/18 12:06 08/31/18 05:47 Dilaudid (Vial) IVP 2 mg Q2H PRN Administration PAIN Lactated Ringer's 1,000 mls @ 100 mls/hr 08/30/18 11:00 08/31/18 01:45 Lr IV 100 mls/hr .Q10H ZOILA Administration Oxytocin/Sodium Chloride 500 mls @ 100 mls/hr 08/30/18 10:13 08/30/18 13:51 Pitocin/Sodium Chloride IV Not Given TITR [facility] Protocol 100 MILLIUNIT/MIN Ibuprofen 600 mg 08/31/18 09:00 08/31/18 09:10 Motrin PO 600 mg Q6HR ZOILA Administration Ondansetron HCl 4 mg 08/29/18 16:00 08/30/18 15:53 Zofran Inj IVP 4 mg Q4HR PRN Administration Nausea / Vomiting Oxycodone HCl 5 mg 08/30/18 10:07 08/31/18 08:11 Roxicodone PO 5 mg Q4HR PRN Administration PAIN Scopolamine HBr 1 patch 08/30/18 20:00 08/31/18 02:28 Transderm-Scop TOP Not Given Q3D [facility] Simethicone 80 mg 08/30/18 14:00 08/31/18 08:12 Mylicon PO 80 mg TID [facility] Administration Sodium Chloride 10 ml 08/30/18 10:07 08/31/18 05:47 Normal Saline Flush 0.9% IVP 10 ml PRN PRN Administration NEEDED PER PROVIDER ORDERS Sodium Chloride 10 ml 08/30/18 17:00 08/31/18 08:13 Normal Saline Flush 0.9% IVP 10 ml 0100,0900,1700 [facility] Administration Physical Exam - Physical Exam General: positive: No acute distress, Alert, Other (Pain reported as controlled with Tylenol and occasional hydrocodone.) HEENT: positive: Moist mucous membranes Neck: positive: Supple w/out meningeal sx (Abdomen nondistended without organomegaly. No inappropriate tenderness.) Abdomen: positive: Surgical Scars (Wound VAC operable no evidence of bleeding under bandage.) Female : positive: Enlarged uterus (17-week size firm nontender) Extremities: positive: Normal ROM, No pedal edema, Non tender Skin: positive: Warm and dry Neurologic: positive: Alert and Oriented X 3 Assessment/Plan - Assessment/Plan Assessment: Patient had difficulty with nausea and pain control last night but this is since resolved. In the past patient has taken ibuprofen without side effects or allergic reaction. Will switch pain relief to ibuprofen. Patient is nursing well. Patient's hemoglobin has equilibrated 8.9 and she tolerates it well. No evidence of ongoing blood loss. Overall she is recovering from section as expected. Plan: PLAN * Continue supportive care. * Switch baseline analgesic to ibuprofen. * Continue breast feeding coaching. * Encourage patient to begin a walking. * DC Duncan and IV fluids.
[2018-09-01] MEDS: ACETAMINOPHEN 500 MG TABLET PO SCH ×3 (01:15→17:01)
[2018-09-01] MEDS: IBUPROFEN 600 MG TABLET PO SCH ×4 (05:05→18:35)
[2018-09-01] MEDS: oxyCODONE 5 MG TABLET PO PRN ×5 (05:06→20:59)
[2018-09-01] MEDS: OXYTOCIN/SODIUM CHLORIDE 500 ML IV SCH ×2 (08:10→08:12)
[2018-09-01] MEDS: SODIUM CHLORIDE FLUSH 0.9% 10 ML SYRINGE IVP SCH ×3 (08:11→14:47)
[2018-09-01] MEDS: LACTATED RINGERS 1,000 ML IV SCH ×4 (08:11→18:49)
[2018-09-01] MEDS: DOCUSATE SODIUM 100 MG CAPSULE PO SCH ×2 (09:21→20:59)
[2018-09-01] MEDS: SIMETHICONE CHEW 80 MG TABLET PO SCH ×3 (09:21→18:35)
--- NOTE | 2018-09-01 12:52 | PROVIDER PROGRESS NOTE ---
Subjective - Prog Note Date Prog Note Date: 09/01/18 Prog Note Time: 12:50 - Subjective Pt reports feeling: Improved Subjective: Ashly in bed, breast feeding baby girl. Feeling better. Ambulating and tolerating a regular diet. Lochia normal. No fevers or chills. [place]. Objective - Vital Signs/Intake & Output Vital Signs: Vital Signs x48h Temp Pulse Resp BP Pulse Ox 09/01/18 07:43 98.2 F 72 16 122/78 98 09/01/18 05:08 98.1 F 71 16 118/74 97 Intake & Output: Intake & Output 08/29/18 08/30/18 08/31/18 09/01/18 23:59 23:59 23:59 23:59 Intake Total 963.806 3267.416 5306.667 1999 Output Total 2065 1200 Balance 308.333 029.179 8178.667 1999 - Objective General Appearance: positive: No acute distress Eyes Bilateral: positive: Normal inspection Abdomen: positive: Non-tender (Wound vac in place and working well. Instructions on care of wound vac given.) Neurologic/Psychiatric: positive: Oriented x3, CN's nml (2-12), Mood/affect nml - Lab Results Fish Bones: 08/31/18 06:05 08/30/18 15:40 Assessment/Plan - Problem List (1) delivery delivered Impression: 43 yo S/p primary CD 08/30/2018 for transverse lie, POD #2 Normal recovery Continue current care.
[2018-09-02] MEDS: IBUPROFEN 600 MG TABLET PO SCH ×3 (00:45→15:18)
[2018-09-02] MEDS: ACETAMINOPHEN 500 MG TABLET PO SCH ×2 (00:52→09:09)
[2018-09-02] MEDS: oxyCODONE 5 MG TABLET PO PRN ×3 (00:52→15:18)
[2018-09-02] MEDS: SODIUM CHLORIDE FLUSH 0.9% 10 ML SYRINGE IVP SCH ×2 (07:55→07:57)
[2018-09-02] MEDS: LACTATED RINGERS 1,000 ML IV SCH (07:56)
[2018-09-02] MEDS: OXYTOCIN/SODIUM CHLORIDE 500 ML IV SCH (07:57)
[2018-09-02] MEDS: DOCUSATE SODIUM 100 MG CAPSULE PO SCH (09:09)
[2018-09-02] MEDS: SIMETHICONE CHEW 80 MG TABLET PO SCH ×2 (09:10→15:18)
--- NOTE | 2018-09-02 09:28 | Discharge Plan ---
Discharge Plan Disposition: 01 Home, Self Care Condition: Good Diet: Regular Activity Restrictions: Activity as Tolerated Shower Restrictions: No Driving Restrictions: No No Smoking: If you smoke, Please STOP! Call for help. Follow-up with: Jodi Brewster MD [Primary Care Provider] - Nitin Brock MD [Provider Admit Priv/Credential] -
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
[2018-09-02 12:43] VITALS: BP 125/76
--- NOTE | 2018-09-02 16:44 | Labor Flowsheet ---
Labor Flowsheet Datetime Report Generated by CPN: 09/02/2018 16:43 Datetime: 08/30/2018 17:56 Membranes Rupture Method: Artificial Amniotic Fluid Color: Clear Amniotic Fluid Odor: Normal Datetime: 08/30/2018 08:44 UTERINE ACTIVITY Monitor Mode: External Frequency (min): 1-5 Quality: Mild Duration (sec): 40-90 Pattern: Normal: <= 5 Contractions in 10 Minutes Resting Tone (Palpate): Relaxed ASSESSMENT A Monitor Mode: Telemetry FHR Baseline Rate : 130 Variability: Moderate 6-25 bpm Accelerations: 10X10 Decelerations: None Category: Category I Oxygen Method: Room Air Datetime: 08/30/2018 08:29 VITAL SIGNS NBP Sys/Lupis/Mean (mmHg): 123 : 75 : 86 LaborFlag: Labor Datetime: 08/30/2018 08:28 Pulse: 82 Respirations: 18 Temperature (C): 37.2 Datetime: 08/30/2018 08:18 Comments: consent to Sx by Dr. Brock done Datetime: 08/30/2018 08:12 Communication Comments: Dr. Brock @BS educating pt on US results and options for POC. Datetime: 08/30/2018 07:41 Patient Care Comments: Pt off EFM for US. US @BS Datetime: 08/30/2018 07:39 Strip Reviewed by: Dr. Brock Datetime: 08/30/2018 07:35 I/O Interventions: Up to BR Datetime: 08/30/2018 07:30 Membrane Status: Intact Amniotic Fluid Amount: None Headache: Denies Nausea/Vomiting: Denies RUQ Epigastric Pain: Denies Datetime: 08/30/2018 07:17 TEACHING Instructional Method: Verbal Plan of Care: Plan of Care Discussed Teaching Comments: discussed ultrasound for weight Datetime: 08/30/2018 07:16 VAGINAL EXAM Station: -4 Exam by: Dr. Brock Vaginal Exam Comments: ballotable Datetime: 08/30/2018 07:14 Provider Reviewed Strip: Yes COMMUNICATION Communication: Provider at Bedside Datetime: 08/30/2018 07:00 Contraction Comments: irritability Datetime: 08/30/2018 06:05 Pain Presence: None/Denies Datetime: 08/30/2018 05:00 Pain Assessment Comments: patient sleeping Datetime: 08/30/2018 04:09 SpO2 (%): 97 PAIN Pain Scale: 2 Pain Type: Cramping Pain Location: Abdomen Pain Coping: Talking Through Contractions Datetime: 08/30/2018 02:00 FHR Baseline Changes: No Baseline Change MATERNAL ASSESSMENT Level of Consciousness: Fully Conscious DTR's/Clonus: DTRs 2+ Breath Sounds, Left: Clear and Equal Breath Sounds, Right: Clear and Equal Datetime: 08/30/2018 01:45 Monitor Interventions for UA: Colby Adjusted Datetime: 08/30/2018 01:35 Patient Position/Activity: Left Lateral Datetime: 08/30/2018 01:22 Medication Comments: LR bolus started Datetime: 08/30/2018 01:20 Provider Notified (Name): Dr. Brock Datetime: 08/29/2018 23:24 Monitor Interventions for FHR: Ultrasound Adjusted Datetime: 08/29/2018 23:06 PTL/PROM: [employer] Datetime: 08/29/2018 23:04 Actions for Decelerations: Oxygen Applied Oxygen Amount (LPM): 10 Datetime: 08/29/2018 23:00 PATIENT CARE IV/Blood Work: IV Bolus Started Datetime: 08/29/2018 21:30 MEDICATIONS Cervical Ripening Agents: Cytotec @ Labor/Induction: Cervical Ripening Medications: Cervical Ripening Datetime: 08/29/2018 21:20 Notification Reason: Status Update; Uterine Activity Datetime: 08/29/2018 19:58 Comfort Measures: Breathing/Relaxation Unit Routine: Unit Personnel; Diet/Nutrition Services Pain Management: Pain Scale/Goals; Comfort Measures Datetime: 08/29/2018 17:56 Stage of : Labor Temperature Route: Oral
== END 2018-09-02 16:35 | disposition home or self-care (01) | DRG 787 ==
LOC: WFO 15:47 → FBP 15:50 → OBSVTOIN 08-30 13:21
PROVIDERS: ADMIT Obstetrics & Gynecology; ATTEND Obstetrics & Gynecology
PROC: 10D00Z1 Extraction of Products of Conception, Low, Open Approach (ICD-10-PCS; principal; 2018-08-30 09:00)
DX: O66.2 Obstructed labor due to unusually large fetus (principal); O98.52 Other viral diseases complicating childbirth; O99.834 Other infection carrier state complicating childbirth; O64.1XX0 Obstructed labor due to breech presentation, not applicable or unspecified; O76 Abnormality in fetal heart rate and rhythm complicating labor and delivery; O69.1XX0 Labor and delivery complicated by cord around neck, with compression, not applicable or unspecified; O99.02 Anemia complicating childbirth; B00.9 Herpesviral infection, unspecified; Z22.338 Carrier of other streptococcus; Z3A.39 39 weeks gestation of pregnancy; Z87.891 Personal history of nicotine dependence; Z98.890 Other specified postprocedural states
CPT/HCPCS: 36415; 76816; 80053; 82803; 85025; 86850; 86900; 86901; 86920; 96360; 96361; 96372

== ENCOUNTER 2021-02-27 08:42 | Outpatient (CLI) | payer BC, OTHER ==
--- NOTE | 2021-02-28 10:35 | Mammography Report ---
BILATERAL DIGITAL SCREENING MAMMOGRAM 3D/2D: 02/27/2021 CLINICAL: Routine screening. Comparison is made to exam dated: 01/21/2017 mammogram - [facility]. The tissue of both breasts is heterogeneously dense. This may lower the sensitivity of mammography. No significant masses, calcifications, or other findings are seen in either breast. There has been no significant interval change. IMPRESSION: NEGATIVE There is no mammographic evidence of malignancy. A 1 year screening mammogram is recommended. This exam was interpreted at Station ID: [id number]. NOTE: For mammograms, a report in lay terms will be sent to the patient. Approximately 15% of breast malignancies will not be visualized mammographically. In the management of a palpable breast mass, a negative mammogram must not discourage biopsy of a clinically suspicious lesion. Electronically Signed By: Will Cuevas M.D. slc/penrad:02/27/2021 09:40:42 ACR BI-RADS Category 1: Negative 3341F PARENCHYMAL PATTERN: (D) - The breast(s) demonstrate(s) heterogeneously dense fibroglandular rafaela sifuentes. BI-RADS CATEGORY: (1) - 1 RECOMMENDATION: (ANNUAL) - Recommend routine annual screening mammography. [id number] 1 year screening LATERALITY: (B)
== END 2021-02-27 08:43 | disposition home or self-care (01) ==
LOC: DI 08:42
DX: Z12.31 Encounter for screening mammogram for malignant neoplasm of breast (principal)

== ENCOUNTER 2021-03-11 10:57 | Outpatient (CLI) | payer OTHER ==
[2021-03-11 11:46] LABS: BASOPHILS % (AUTO) 0.4 %; EOSINOPHILS # (AUTO) 0.1 10^3/uL (0.0-0.7); EOSINOPHILS % (AUTO) 0.7 %; HCT - HEMATOCRIT 34.8 % (37.0-47.0); HGB - HEMOGLOBIN 11.1 g/dL (12.0-16.0); LYMPHOCYTES # (AUTO) 2.3 10^3/uL (1.5-3.5); LYMPHOCYTES % (AUTO) 33.7 %; MEAN CORPUSCULAR HEMOGLOBIN 30.4 pg (27.0-31.0); MEAN CORPUSCULAR HGB CONC 31.9 g/dL (32.0-36.0); MEAN CORPUSCULAR VOLUME 95.3 fL (81.0-99.0); MEAN PLATELET VOLUME 10.2 fL (7.9-10.8); MONOCYTES # (AUTO) 0.7 10^3/uL (0.0-1.0); MONOCYTES % (AUTO) 9.5 %; NEUTROPHILS # (AUTO) 3.8 10^3/uL (1.5-6.6); NEUTROPHILS % (AUTO) 55.3 %; PLT - PLATELET COUNT 247 10^3/uL (130-450); RED BLOOD COUNT 3.65 10^6/uL (4.20-5.40); RED CELL DISTRIBUTION WIDTH 13.3 % (12.0-15.0); WHITE BLOOD COUNT 6.9 x10^3/uL (4.8-10.8)
[2021-03-11 12:04] LABS: ALBUMIN 4.4 g/dL (3.2-5.5); ALBUMIN/GLOBULIN RATIO 1.6 (1.0-2.2); ALKALINE PHOSPHATASE 30 IU/L (42-121); ALT ALANINE AMINOTRANSFERASE 18 IU/L (10-60); AST ASPARTATE AMINOTRANSFERASE 24 IU/L (10-42); BILIRUBIN,TOTAL 0.7 mg/dL (0.2-1.0); BUN - BLOOD UREA NITROGEN 17 mg/dL (6-20); CALCIUM 8.9 mg/dL (8.5-10.3); CARBON DIOXIDE - CO2 27 mmol/L (21-32); CHLORIDE 100 mmol/L (101-111); CHOL/HDL RATIO 1.8 (<4.4); CHOLESTEROL 155 mg/dL; CREATININE 0.8 mg/dL (0.4-1.0); GFR - MDRD 78 (>89); GLUCOSE 89 mg/dL (70-100); HDL CHOLESTEROL 86 mg/dL; LDL CHOLESTEROL,CALCULATED 60 mg/dL; LDL/HDL RATIO 0.7 (<4.4); POTASSIUM 3.7 mmol/L (3.5-5.0); SODIUM 135 mmol/L (135-145); TOTAL PROTEIN 7.1 g/dL (6.7-8.2); TRIGLYCERIDES 46 mg/dL; VLDL CHOLESTEROL 9 mg/dL
[2021-03-11 12:13] LABS: THYROID STIMULATING HORMONE 1.44 uIU/mL (0.34-5.60)
== END 2021-03-11 10:58 | disposition home or self-care (01) ==
LOC: LAB 10:57
PROVIDERS: ATTEND Nurse Practitioner Family
DX: Z00.00 Encounter for general adult medical examination without abnormal findings (principal)
CPT/HCPCS: 36415; 80053; 80061; 83721; 84443; 85025